=== PATIENT | female | born 1950 | race Asian ===

== ENCOUNTER 2016-07-09 13:38 | Inpatient (IN) | payer OTHER ==
[~2016-07-09] VITALS: Ht 149.9 cm; Wt 41.4 kg
[2016-07-09 13:57] LABS: GLUCOSE,POINT OF CARE 172 MG/DL (70-110)
[2016-07-09] MEDS ORDERED: MONT4TAB8 PO (13:59)
[2016-07-09] MEDS ORDERED: GLIP5TAB11 PO (13:59)
[2016-07-09] MEDS ORDERED: TELM80TA2 PO (13:59)
[2016-07-09] MEDS ORDERED: SITA25 PO (13:59)
[2016-07-09] MEDS ORDERED: ATOR20TA65 PO (13:59)
[2016-07-09] MEDS ORDERED: ALBU0.212 IH (13:59)
[2016-07-09] MEDS ORDERED: IPRATROPIUM BROMIDE 0.5 MG/2.5 ML NEB SOLUTION NEB ONE (14:30)
[2016-07-09] MEDS ORDERED: CefTRIAXone 1 GM/DEXTROSE 50 ML IV ONE (14:30)
[2016-07-09] MEDS ORDERED: ALBUTEROL SULFATE 5 MG/ML 20 ML NEB SOLN [BULK] NEB ONE (14:30)
[2016-07-09 15:08] LABS: BASOPHILS % (AUTO) 0.1 % (0.0-2.0); HEMATOCRIT 35.7 % (36-46); HEMOGLOBIN 11.6 g/dL (12.0-16.0); LYMPHOCYTES # (AUTO) 2.1 K/uL (1.0-4.8); LYMPHOCYTES % (AUTO) 14.7 % (22.0-44.0); MEAN CORPUSCULAR HEMOGLOBIN 27.8 pg (26.0-34.0); MEAN CORPUSCULAR HGB CONC 32.5 G/dL (31.0-37.0); MEAN CORPUSCULAR VOLUME 86 fL (80-100); MONOCYTES # (AUTO) 0.7 K/uL (0.1-1.0); MONOCYTES % (AUTO) 4.5 % (2.0-9.0); NEUTROPHILS # (AUTO) 8.2 K/uL (1.8-7.7); PLATELET COUNT (AUTO) 322 K/uL (150-450); RED BLOOD CELL COUNT(AUTO) 4.17 MIL/uL (4.00-5.20); RED CELL DISTRIBUTION WIDTH 13.4 % (11.5-14.5); WHITE BLOOD COUNT (AUTO) 14.3 K/uL (4.5-11.0)
[2016-07-09] MEDS ORDERED: 0.9% SODIUM CHLORIDE 5 ML NEB SOLUTION NEB ONE (15:09)
[2016-07-09 15:18] LABS: EOSINOPHILS % (AUTO) 23.7 % (1.0-6.0)
[2016-07-09 15:45] LABS: ANION GAP 11 mmol/L (8-16); CALCIUM, TOTAL 8.7 mg/dL (8.8-10.5); CARBON DIOXIDE 25 mmol/L (22-29); CHLORIDE 105 mmol/L (98-107); CREATININE 2.01 mg/dL (0.60-1.30); GLOMERULAR FILTR. RATE CALC 25 mL/min (>60); POTASSIUM 3.6 mmol/L (3.5-5.1); SODIUM SERUM 141 mmol/L (136-145); UREA NITROGEN, BLOOD 27 mg/dL (7-18)
[2016-07-09] MEDS ORDERED: ACETAMINOPHEN 325 MG TABLET PO PRN ×2 (15:45→19:15)
[2016-07-09] MEDS ORDERED: 0.9% SODIUM CHLORIDE 10 ML SYRINGE IVP PRN (15:45)
[2016-07-09] MEDS ORDERED: ONDANSETRON HCL 4 MG/2 ML VIAL IVP PRN ×2 (15:45→19:15)
[2016-07-09 15:51] LABS: ALANINE AMINOTRANSFERASE 22 U/L (12-78); ALBUMIN 3.1 g/dL (3.4-5.0); ASPARTATE AMINOTRANSFERASE 16 U/L (15-37); BILIRUBIN,TOTAL 0.3 mg/dL (0.1-1.0); TOTAL PROTEIN, SERUM 7.1 g/dL (6.4-8.2)
[2016-07-09 16:17] LABS: RBC MORPHOLOGY COMMENT NORMAL RBC MORPH
[2016-07-09 16:36] LABS: LACTIC ACID 2.5 mmol/L (0.4-2.0)
[2016-07-09 16:38] LABS: B-TYPE NATRIURETIC PEPTIDE 23 pg/mL (0-100)
[2016-07-09 17:02] LABS: REFLEX LACTIC ACID? YES YES
[2016-07-09 17:06] LABS: INFLUENZA TYPE B NEGATIVE FOR TYPE B (NEGATIVE)
[2016-07-09 17:52] VITALS: BP 174/88
[2016-07-09 18:07] LABS: GLUCOSE,POINT OF CARE 137 MG/DL (70-110)
[2016-07-09] MEDS ORDERED: MethylPREDNISolone SOD SUCC 125 MG/2 ML VIAL ONE (18:24)
[2016-07-09] MEDS ORDERED: IPRATROPIUM BROMIDE 0.5 MG/2.5 ML NEB SOLUTION NEB SCH (19:00)
[2016-07-09] MEDS ORDERED: ALBUTEROL SULFATE 2.5 MG/0.5 ML NEB SOLUTION NEB SCH (19:00)
[2016-07-09] MEDS ORDERED: ALBUTEROL SULFATE 0.63 MG IH PRN (19:15)
[2016-07-09] MEDS ORDERED: BISACODYL 10 MG RECTAL RECTAL SUPPOSITORY PR PRN (19:15)
[2016-07-09] MEDS ORDERED: ZOLPIDEM TARTRATE 5 MG TABLET PO PRN (19:15)
[2016-07-09] MEDS ORDERED: HYDROCODONE/ACETAMINOPHEN 5-325 MG TABLET PO PRN (19:15)
[2016-07-09] MEDS ORDERED: MAGNESIUM HYDROXIDE SUSPENSION 30 ML UDCUP PO PRN (19:15)
[2016-07-09] MEDS ORDERED: MORPHINE SULFATE 4 MG/ML SYRINGE IVP PRN (19:15)
[2016-07-09 19:42] VITALS: BP 127/68
[2016-07-09] MEDS: DOCUSATE SODIUM 100 MG CAPSULE PO SCH ×2 (19:50→21:00)
[2016-07-09] MEDS: MethylPREDNISolone SOD SUCC 125 MG/2 ML VIAL IVP SCH ×2 (19:50→23:30)
[2016-07-09] MEDS: OXYGEN THERAPY IH SCH (19:50)
[2016-07-09 21:57] LABS: GLUCOSE COMMENT 1 Received Meds; GLUCOSE,POINT OF CARE 236 MG/DL (70-110)
[2016-07-09] MEDS ORDERED: DEXTROSE 50%-WATER 25 GM/50 ML SYRINGE IVP PRN ×2 (22:15)
[2016-07-09] MEDS ORDERED: INSULIN ASPART 100 UNITS/ML SQ PRN (22:15)
[2016-07-09] MEDS: IPRATROPIUM BROMIDE 0.5 MG/2.5 ML NEB SOLUTION NEB PRN (22:59)
[2016-07-09] MEDS: ALBUTEROL SULFATE 2.5 MG/0.5 ML NEB SOLUTION NEB PRN (22:59)
[2016-07-09] MEDS: HEPARIN SODIUM,PORCINE 5,000 UNITS/ML VIAL SQ SCH (23:30)
[2016-07-09] MEDS: INSULIN ASPART 100 UNITS/ML SQ PRN (23:31)
[2016-07-09 23:50] VITALS: BP 124/64
[2016-07-10 04:00] VITALS: BP 141/72
[2016-07-10] MEDS: INSULIN ASPART 100 UNITS/ML SQ PRN ×4 (05:45→20:43)
[2016-07-10] MEDS: MethylPREDNISolone SOD SUCC 125 MG/2 ML VIAL IVP SCH ×3 (05:45→23:19)
[2016-07-10 05:57] LABS: GLUCOSE COMMENT 1 Received Meds; GLUCOSE,POINT OF CARE 162 MG/DL (70-110)
[2016-07-10] MEDS: GlipiZIDE 5 MG TABLET PO SCH (06:00)
[2016-07-10 08:03] VITALS: BP 140/92
[2016-07-10] MEDS: SitaGLIPtin PHOSPHATE 25 MG TABLET PO SCH (08:08)
[2016-07-10] MEDS: HEPARIN SODIUM,PORCINE 5,000 UNITS/ML VIAL SQ SCH ×3 (08:08→23:20)
[2016-07-10] MEDS: PANTOPRAZOLE SODIUM 40 MG/VIAL IVP SCH (08:08)
[2016-07-10] MEDS: ATORVASTATIN CALCIUM 20 MG TABLET PO SCH (08:08)
[2016-07-10] MEDS: MONTELUKAST SODIUM 10 MG TABLET PO SCH (08:09)
[2016-07-10] MEDS: OXYGEN THERAPY IH SCH ×2 (08:10→19:09)
[2016-07-10] MEDS: DOCUSATE SODIUM 100 MG CAPSULE PO SCH ×2 (08:10→20:53)
[2016-07-10] MEDS: TELMISARTAN 40 MG TABLET PO SCH (08:12)
[2016-07-10 11:42] LABS: GLUCOSE,POINT OF CARE 191 MG/DL (70-110)
[2016-07-10 12:02] VITALS: BP 152/87
[2016-07-10] MEDS ORDERED: 0.9% SODIUM CHLORIDE 5 ML NEB SOLUTION NEB ONE (13:10)
[2016-07-10] MEDS: IPRATROPIUM BROMIDE 0.5 MG/2.5 ML NEB SOLUTION NEB PRN ×4 (13:19→22:49)
[2016-07-10] MEDS: ALBUTEROL SULFATE 2.5 MG/0.5 ML NEB SOLUTION NEB PRN (13:19)
[2016-07-10] MEDS: ALBUTEROL SULFATE 2.5 MG/0.5 ML NEB SOLUTION NEB SCH ×3 (15:15→22:49)
[2016-07-10 15:55] VITALS: BP 132/60
[2016-07-10 16:42] LABS: GLUCOSE,POINT OF CARE 272 MG/DL (70-110)
[2016-07-10 20:12] VITALS: BP 146/63
[2016-07-10] MEDS ORDERED: CLOBETASOL 0.05% 15 GM CREAM TP SCH (21:00)
[2016-07-10 21:36] LABS: GLUCOSE COMMENT 1 Received Meds; GLUCOSE,POINT OF CARE 349 MG/DL (70-110)
[2016-07-11] VITALS: BP 107/51
[2016-07-11] MEDS: ALBUTEROL SULFATE 2.5 MG/0.5 ML NEB SOLUTION NEB SCH ×3 (03:03→11:14)
[2016-07-11] MEDS: IPRATROPIUM BROMIDE 0.5 MG/2.5 ML NEB SOLUTION NEB PRN ×3 (03:03→11:14)
[2016-07-11 04:00] VITALS: BP 120/58
[2016-07-11] MEDS: INSULIN ASPART 100 UNITS/ML SQ PRN ×2 (06:16→12:26)
[2016-07-11] MEDS: GlipiZIDE 5 MG TABLET PO SCH (06:17)
[2016-07-11] MEDS: MethylPREDNISolone SOD SUCC 125 MG/2 ML VIAL IVP SCH ×2 (06:17→12:25)
[2016-07-11 06:31] LABS: GLUCOSE,POINT OF CARE 96 MG/DL (70-110)
[2016-07-11 06:31] LABS: GLUCOSE COMMENT 1 Received Meds; GLUCOSE,POINT OF CARE 243 MG/DL (70-110)
[2016-07-11 08:00] VITALS: BP 151/66
[2016-07-11] MEDS: HEPARIN SODIUM,PORCINE 5,000 UNITS/ML VIAL SQ SCH (08:30)
[2016-07-11] MEDS: SitaGLIPtin PHOSPHATE 25 MG TABLET PO SCH (08:30)
[2016-07-11] MEDS: DOCUSATE SODIUM 100 MG CAPSULE PO SCH (08:30)
[2016-07-11] MEDS: ATORVASTATIN CALCIUM 20 MG TABLET PO SCH (08:30)
[2016-07-11] MEDS: MONTELUKAST SODIUM 10 MG TABLET PO SCH (08:30)
[2016-07-11] MEDS: TELMISARTAN 40 MG TABLET PO SCH (08:30)
[2016-07-11] MEDS: PANTOPRAZOLE SODIUM 40 MG/VIAL IVP SCH (08:31)
[2016-07-11] MEDS: OXYGEN THERAPY IH SCH (08:45)
[2016-07-11 12:17] LABS: GLUCOSE,POINT OF CARE 248 MG/DL (70-110)
[2016-07-11 12:28] VITALS: BP 144/78
[2016-07-11] MEDS ORDERED: PredniSONE 20 MG TABLET PO ONE (13:30)
[2016-07-11] MEDS ORDERED: PredniSONE 20 MG TABLET ONE (13:35)
== END 2016-07-11 14:30 | disposition left against medical advice (07) | DRG 682 ==
LOC: EMS 13:39 → 6N 16:33
PROVIDERS: ADMIT Hospitalist; ATTEND Hospitalist
DX: N17.9 Acute kidney failure, unspecified (principal); J96.00 Acute respiratory failure, unspecified whether with hypoxia or hypercapnia; J45.901 Unspecified asthma with (acute) exacerbation; R65.10 Systemic inflammatory response syndrome (SIRS) of non-infectious origin without acute organ dysfunction; E44.0 Moderate protein-calorie malnutrition; I10 Essential (primary) hypertension; J44.9 Chronic obstructive pulmonary disease, unspecified; E78.5 Hyperlipidemia, unspecified; E78.00 Pure hypercholesterolemia, unspecified; E11.65 Type 2 diabetes mellitus with hyperglycemia; F17.210 Nicotine dependence, cigarettes, uncomplicated; E86.0 Dehydration; Z79.84 Long term (current) use of oral hypoglycemic drugs; Z79.51 Long term (current) use of inhaled steroids; Z79.899 Other long term (current) drug therapy
CPT/HCPCS: 82962; 83605; 87040; 87804; 93005; 94640; 96365; 96366; 99285; C9113; J0696; J1644; J2930

== ENCOUNTER → 2017-11-24 | Outpatient (CLI) | payer MEDICARE, OTHER ==
[~2017-11-24] MED LIST: ALBU0.212 IH; ATOR20TA65 PO; GLIP5TAB11 PO; MONT4TAB8 PO; SITA25 PO; TELM80TA2 PO
== END | disposition home or self-care (01) ==
LOC: RADPV 09:21
PROVIDERS: ATTEND Internal Medicine Nephrology
DX: N28.1 Cyst of kidney, acquired (principal); N18.3 Chronic kidney disease, stage 3 (moderate)
CPT/HCPCS: 76770

== ENCOUNTER → 2017-12-15 | Outpatient (CLI) | payer MEDICARE, OTHER ==
[2017-12-15 10:33] LABS: BASOPHILS % (AUTO) 0.9 % (0.0-2.0); HEMATOCRIT 39.2 % (36-46); HEMOGLOBIN 13.1 g/dL (12.0-16.0); LYMPHOCYTES # (AUTO) 2.9 K/uL (1.0-4.8); LYMPHOCYTES % (AUTO) 24.5 % (22.0-44.0); MEAN CORPUSCULAR HEMOGLOBIN 27.5 pg (26.0-34.0); MEAN CORPUSCULAR HGB CONC 33.4 G/dL (31.0-37.0); MEAN CORPUSCULAR VOLUME 82 fL (80-100); MONOCYTES # (AUTO) 0.6 K/uL (0.1-1.0); MONOCYTES % (AUTO) 4.8 % (2.0-9.0); NEUTROPHILS # (AUTO) 5.9 K/uL (1.8-7.7); NEUTROPHILS % (AUTO) 50.3 % (40.0-70.0); PLATELET COUNT (AUTO) 343 K/uL (150-450); RED BLOOD CELL COUNT(AUTO) 4.76 MIL/uL (4.00-5.20); RED CELL DISTRIBUTION WIDTH 13.4 % (11.5-14.5)
[2017-12-15 10:34] LABS: APPEARANCE,URINE CLEAR (CLEAR); BILIRUBIN,URINE NEGATIVE (NEGATIVE); GLUCOSE, URINE (UA) NEGATIVE (NEGATIVE); KETONES,URINE NEGATIVE (NEGATIVE); LEUKOCYTE ESTERASE ,URINE NEGATIVE (NEGATIVE); NITRATE,URINE NEGATIVE (NEGATIVE); OCCULT BLOOD,URINE TRACE (NEGATIVE); PROTEIN,URINE SEE CONFIRM (NEGATIVE); UROBILINOGEN,URINE 0.2 mg/dL (<=1.0)
[2017-12-15 10:36] LABS: HEMOGLOBIN A1C 6.4 % (4.5-6.2)
[2017-12-15 10:41] LABS: EOSINOPHILS % (AUTO) 19.5 % (1.0-6.0)
[2017-12-15 10:48] LABS: ALBUMIN 3.6 g/dL (3.4-5.0); CALCIUM, TOTAL 9.3 mg/dL (8.8-10.5); CHOL/HDL RATIO 4.7 (3.9-5.7); CREATININE 2.07 mg/dL (0.60-1.30); MAGNESIUM 2.2 mg/dL (1.80-2.40); PHOSPHORUS 3.8 mg/dL (2.5-4.9); POTASSIUM 4.7 mmol/L (3.5-5.1)
[2017-12-15 11:26] LABS: SULFOSALICYLIC ACID,URINE 2+ (Negative)
[2017-12-15 11:28] LABS: BACTERIA,URINE Rare /HPF (None Seen); RBC,URINE None Seen /HPF (0-2); SQUAMOUS EPITHELIAL CELL,UR Rare /LPF (None Seen); WBC,URINE None Seen /HPF (0-5)
[2017-12-15 12:12] LABS: CREATININE,URINE 44.7 mg/dL (30.0-125.0)
[2017-12-15 12:18] LABS: CREATININE,SERUM FOR CRCL 2.07 mg/dL (0.60-1.30)
== END | disposition home or self-care (01) ==
LOC: LABPV 08:25
PROVIDERS: ATTEND Internal Medicine Nephrology
DX: E11.22 Type 2 diabetes mellitus with diabetic chronic kidney disease (principal); I12.9 Hypertensive chronic kidney disease with stage 1 through stage 4 chronic kidney disease, or unspecified chronic kidney disease; N18.3 Chronic kidney disease, stage 3 (moderate); E55.9 Vitamin D deficiency, unspecified; E78.5 Hyperlipidemia, unspecified; M30.1 Polyarteritis with lung involvement [Churg-Strauss]; K21.9 Gastro-esophageal reflux disease without esophagitis; R94.4 Abnormal results of kidney function studies; R68.89 Other general symptoms and signs; E78.00 Pure hypercholesterolemia, unspecified; J44.9 Chronic obstructive pulmonary disease, unspecified; F17.210 Nicotine dependence, cigarettes, uncomplicated
CPT/HCPCS: 81050; 82043; 82306; 82570; 82575; 83036; 83735; 83970; 84156

== ENCOUNTER → 2017-12-26 | Outpatient (CLI) | payer MEDICARE, OTHER ==
[2017-12-26 11:34] LABS: ALBUMIN 3.5 g/dL (3.4-5.0); CALCIUM, TOTAL 9.1 mg/dL (8.8-10.5); CREATININE 2.01 mg/dL (0.60-1.30); PHOSPHORUS 3.9 mg/dL (2.5-4.9); POTASSIUM 4.3 mmol/L (3.5-5.1)
== END | disposition home or self-care (01) ==
LOC: LABPV 08:47
PROVIDERS: ATTEND Internal Medicine Nephrology
DX: I12.9 Hypertensive chronic kidney disease with stage 1 through stage 4 chronic kidney disease, or unspecified chronic kidney disease (principal); E11.22 Type 2 diabetes mellitus with diabetic chronic kidney disease; N18.3 Chronic kidney disease, stage 3 (moderate); E78.00 Pure hypercholesterolemia, unspecified; J44.9 Chronic obstructive pulmonary disease, unspecified

== ENCOUNTER → 2018-02-23 | Outpatient (CLI) | payer MEDICARE, OTHER ==
[2018-02-23 10:27] LABS: BASOPHILS % (AUTO) 0.6 % (0.0-2.0); EOSINOPHILS % (AUTO) 12.7 % (1.0-6.0); HEMOGLOBIN 13.4 g/dL (12.0-16.0); LYMPHOCYTES # (AUTO) 3.5 K/uL (1.0-4.8); MEAN CORPUSCULAR HEMOGLOBIN 27.2 pg (26.0-34.0); MEAN CORPUSCULAR HGB CONC 33.4 G/dL (31.0-37.0); MEAN CORPUSCULAR VOLUME 81 fL (80-100); MONOCYTES # (AUTO) 0.6 K/uL (0.1-1.0); MONOCYTES % (AUTO) 4.8 % (2.0-9.0); NEUTROPHILS # (AUTO) 7.6 K/uL (1.8-7.7); NEUTROPHILS % (AUTO) 55.9 % (40.0-70.0); PLATELET COUNT (AUTO) 367 K/uL (150-450); RED BLOOD CELL COUNT(AUTO) 4.91 MIL/uL (4.00-5.20)
[2018-02-23 10:28] LABS: PROTEIN,URINE RANDOM 116 mg/dL (0-11.9)
[2018-02-23 10:35] LABS: HEMOGLOBIN A1C 6.9 % (4.5-6.2)
[2018-02-23 10:36] LABS: APPEARANCE,URINE CLEAR (CLEAR); BILIRUBIN,URINE NEGATIVE (NEGATIVE); GLUCOSE, URINE (UA) NEGATIVE (NEGATIVE); KETONES,URINE NEGATIVE (NEGATIVE); LEUKOCYTE ESTERASE ,URINE NEGATIVE (NEGATIVE); NITRATE,URINE NEGATIVE (NEGATIVE); OCCULT BLOOD,URINE TRACE (NEGATIVE); PH,URINE 5.5 (5.0-8.0); PROTEIN,URINE SEE CONFIRM (NEGATIVE); UROBILINOGEN,URINE 0.2 mg/dL (<=1.0)
[2018-02-23 10:42] LABS: ALBUMIN 3.2 g/dL (3.4-5.0); CREATININE 2.3 mg/dL (0.60-1.30); PHOSPHORUS 3.7 mg/dL (2.5-4.9); POTASSIUM 4.3 mmol/L (3.5-5.1)
[2018-02-23 11:21] LABS: SULFOSALICYLIC ACID,URINE 1+ (Negative)
[2018-02-23 11:22] LABS: RBC,URINE 0-2 /HPF (0-2)
[2018-02-23 11:23] LABS: BACTERIA,URINE None Seen /HPF (None Seen); SQUAMOUS EPITHELIAL CELL,UR Few /LPF (None Seen); WBC,URINE 0-2 /HPF (0-5)
== END | disposition home or self-care (01) ==
LOC: LABPV 08:55
PROVIDERS: ATTEND Internal Medicine Nephrology
DX: M30.1 Polyarteritis with lung involvement [Churg-Strauss] (principal); E11.9 Type 2 diabetes mellitus without complications; I10 Essential (primary) hypertension
CPT/HCPCS: 82043; 82570; 83036; 83735; 84156

== ENCOUNTER → 2019-06-08 | Outpatient (CLI) | payer MEDICARE, OTHER | END | disposition home or self-care (01) | LOC: RADPV 10:23 | PROVIDERS: ATTEND Internal Medicine Nephrology | DX: N18.4 Chronic kidney disease, stage 4 (severe) (principal); N28.1 Cyst of kidney, acquired | CPT/HCPCS: 76770 ==